=== PATIENT | female | born 1965 | race Caucasian/White ===

== ENCOUNTER → 2016-09-12 | Outpatient (REF) | payer BC ==
[2016-09-16 13:42] LABS: LUTEINIZING HORMONE 7.9 mIU/mL
[2016-09-16 13:43] LABS: FOLLICLE STIMULATING HORMONE 13.4 mIU/mL
== END ==
LOC: M LAB REF 12:56
PROVIDERS: ATTEND Nurse Practitioner Family
DX: N95.1 Menopausal and female climacteric states (principal)

== ENCOUNTER → 2020-07-11 | Outpatient (CLI) | payer SELFPAY | LOC: M LABSMTC 18:08 | PROVIDERS: ATTEND Pediatrics | DX: Z11.59 Encounter for screening for other viral diseases (principal) ==

== ENCOUNTER → 2020-08-20 | Outpatient (CLI) | payer SELFPAY | LOC: M LABSMTC 10:08 | PROVIDERS: ATTEND Pediatrics | DX: Z20.822 Contact with and (suspected) exposure to COVID-19 (principal) ==

== ENCOUNTER → 2021-05-23 | Outpatient (CLI) | payer BC ==
--- NOTE | 2021-05-24 05:34 | REP ---
INDICATION: PAIN COMPARISON: None. TECHNIQUE: AP, lateral, flexion/extension, bilateral oblique, and open-mouth views. FINDINGS: Straightening of normal lordosis noted. Moderate to advanced multilevel degenerative changes include endplate sclerosis, osteophytosis and disc space narrowing along with facet hypertrophy. Findings centered at C5-6. Alignment is maintained on flexion/extension views. Oblique views demonstrate relatively patent neural foramen. Open mouth view demonstrates normal C1-C2 articulation and odontoid process. No evidence for acute fracture/compression injury. IMPRESSION: Moderate to advanced multilevel degenerative spondylosis centered at C5-6. <Electronically signed by Pedrito Trotter > 05/24/21 [id number]
== END ==
LOC: M WUC 15:43
PROVIDERS: ATTEND Internal Medicine
DX: M47.812 Spondylosis without myelopathy or radiculopathy, cervical region (principal); M25.78 Osteophyte, vertebrae

== ENCOUNTER → 2021-06-12 | Outpatient (CLI) | payer BC ==
--- NOTE | 2021-06-12 17:09 | DEXAMM ---
INDICATION: [facility] SCREEN FOR OSTEOPOROSIS. COMPARISON: None. TECHNIQUE: Bone density was measured using dual-energy x-ray absorptiometry (DEXA). FINDINGS: AP SPINE L1-L4 BMD 1.117 g/cm2 Young Adult T-Score -0.6 Age Matched Z-Score 0.2. LT FEMUR, TOTAL BMD 0.968 g/cm2 Young Adult T-Score -0.3 Age Matched Z-Score 0.4. LT NECK BMD 0.888 g/cm2 Young Adult T-Score -1.1 Age Matched Z-Score 0.0. RT FEMUR, TOTAL BMD 0.962 g/cm2 Young Adult T-Score -0.4 Age Matched Z-Score 0.3. RT NECK BMD 0.932 g/cm2 Young Adult T-Score -0.8 Age Matched Z-Score 0.3. IMPRESSION: There is normal bone density of the spine. There is low bone density of the left hip. There is normal bone density of the right hip. FOLLOW-UP: Recommendation for the next bone density exam: 2 years. <Electronically signed by Marshall Benavides > 06/12/21 [id number]
== END ==
LOC: M WHC 14:33
PROVIDERS: ATTEND Internal Medicine
DX: Z13.820 Encounter for screening for osteoporosis (principal)

== ENCOUNTER → 2023-01-28 | Outpatient (CLI) | payer BC | LOC: M WUC 11:01 | PROVIDERS: ATTEND Internal Medicine | DX: M25.562 Pain in left knee (principal) ==

== ENCOUNTER → 2023-08-07 | Outpatient (REF) | payer BC | LOC: M LAB REF 11:31 | PROVIDERS: ATTEND Internal Medicine | DX: M25.512 Pain in left shoulder (principal) ==

== ENCOUNTER → 2023-08-14 | Outpatient (REF) | payer BC | LOC: M SFHCWAGY 10:09 | PROVIDERS: ATTEND Nurse Practitioner Family | DX: Z12.4 Encounter for screening for malignant neoplasm of cervix (principal); Z11.51 Encounter for screening for human papillomavirus (HPV) ==

== ENCOUNTER 2024-06-16 07:01 | Day surgery (SDC) | payer BC ==
[~2024-06-16] VITALS: Ht 162.6 cm; Wt 78.8 kg
[~2024-06-16 07:01] MED LIST: BUPR150T12 PO; CITA40TA7 PO; LISI10TA22 PO; PHEN30CA21 PO; ROSU5TAB49 PO
[2024-06-16] MEDS ORDERED: propofoL 200 MG/20 ML VIAL As Ordered ONE (07:54)
[2024-06-16 08:16] VITALS: TEMP 97.1
[2024-06-16 08:34] VITALS: BP 110/71; O2SAT 97
== END 2024-06-16 08:52 | disposition home or self-care (01) ==
LOC: M OPP 07:01
PROVIDERS: ATTEND Internal Medicine Gastroenterology
DX: Z12.11 Encounter for screening for malignant neoplasm of colon (principal); K57.30 Diverticulosis of large intestine without perforation or abscess without bleeding; K64.0 First degree hemorrhoids; Z83.719 Family history of colon polyps, unspecified; I10 Essential (primary) hypertension; E78.00 Pure hypercholesterolemia, unspecified; Z79.899 Other long term (current) drug therapy

== ENCOUNTER → 2024-08-17 | Outpatient (CLI) | payer BC | LOC: M WHC 08:37 | PROVIDERS: ATTEND Nurse Practitioner Family | DX: M85.851 Other specified disorders of bone density and structure, right thigh (principal); M85.852 Other specified disorders of bone density and structure, left thigh ==

== ENCOUNTER → 2024-10-19 | Outpatient (REF) | payer BC ==
[2024-10-20 13:24] LABS: FREE T4 0.84 NG/DL (0.89-1.76)
== END ==
LOC: M LAB REF 12:17
PROVIDERS: ATTEND Internal Medicine
DX: E07.9 Disorder of thyroid, unspecified (principal)